=== PATIENT | female | born 1990 | race Hispanic/Latino ===

== ENCOUNTER 2023-04-02 09:36 | Inpatient (IN) | payer SELFPAY ==
[2023-04-02 09:52] VITALS: BMI 33.7
[2023-04-02] MEDS ORDERED: fentaNYL 50 mcg/mL 1 mL Vial SLOW IVP PRN (10:04)
[2023-04-02] MEDS ORDERED: Acetaminophen 500 MG TAB PO PRN (10:04)
[2023-04-02] MEDS ORDERED: Lidocaine 1% (PF) 30 ML VIAL SC PRN (10:04)
[2023-04-02] MEDS ORDERED: hydrALAZINE 20 MG/ML VIAL SLOW IVP PRN (10:04)
[2023-04-02] MEDS ORDERED: Ondansetron PF 4 MG/2 ML Vial IVP PRN ×2 (10:04→11:15)
[2023-04-02] MEDS ORDERED: Promethazine HCl 25 MG/ML VIAL IM PRN ×2 (10:04→11:15)
[2023-04-02] MEDS ORDERED: Lactated Ringer's 1,000 ML IV SCH (10:15)
[2023-04-02 10:33] LABS: Hematocrit 37.2 % (34.9-44.5); Hemoglobin 12.6 g/dL (12.0-15.5); Mean Corpuscular HGB CONC 33.9 g/dL (32.0-36.0); Mean Corpuscular Hemoglobin 27.9 pg (27.0-33.0); Mean Corpuscular Volume 82.5 fl (81.6-98.3); Platelet Count 323 10x3/uL (150-450); RBC Distribution Width 14.6 % (11.5-14.5); Red Blood Cell (RBC) Count 4.51 10x6/uL (3.90-5.03); White Blood Cell (WBC) Count 14.1 10x3/uL (3.5-10.5)
[2023-04-02 11:02] LABS: HIV (1/2) Antibody/Antigen Non-Reactive (NonReactive); HIV 1/2 INDEX 0.07 S/CO (<1.00)
[2023-04-02 11:04] LABS: Syphilis Antibody Nonreactive (Nonreactive); Syphilis Antibody Index 0.05 S/CO (<1.00 Non-Reactive)
[2023-04-02 11:05] LABS: HBSAg Index 0.24 S/CO (0-0.99); Hep B Surf Ag - L&D Non-Reactive S/CO (NonReactive)
[2023-04-02] MEDS: fentaNYL/Ropivacaine Epidural 100 ML ONE (11:08)
[2023-04-02] MEDS ORDERED: diphenhydrAMINE 50 MG/ML VIAL IVP PRN (11:15)
[2023-04-02] MEDS ORDERED: Moisturizing Cream (Eucerin) 113 GM JAR TOP PRN (11:15)
[2023-04-02] MEDS ORDERED: ePHEDrine Sulfate 50 MG/10 ML VIAL SLOW IVP PRN (11:15)
[2023-04-02] MEDS ORDERED: Naloxone HCl 0.4 mg/ml Vial IVP PRN ×2 (11:15)
[2023-04-02] MEDS ORDERED: Acetaminophen 325 MG TAB PO PRN (11:15)
[2023-04-02] MEDS ORDERED: Communication Order-Pharmacy FS SCH (11:15)
[2023-04-02] MEDS ORDERED: Lactated Ringer's 500 ML IV PRN (11:15)
[2023-04-02 11:33] LABS: Amphetamine Not Detected (NotDetected); Barbiturates Screen Not Detected (NotDetected); Benzodiazepine Screen Not Detected (NotDetected); Cocaine Metabolite Screen Not Detected (NotDetected); Methadone Not Detected (NotDetected); Methamphetamine Not Detected (NotDetected); Opiate Screen Not Detected (NotDetected); Oxycodone Screen Not Detected (NotDetected); Phencyclidine (PCP) Not Detected (NotDetected); THC/Cannabinoid Screen Not Detected (NotDetected); Tricyclic Screen Not Detected (NotDetected)
[2023-04-02] MEDS: fentaNYL 2 mcg/Ropivacaine 0.2% Epidural 100 ML CADD EPIDURAL SCH (20:24)
[2023-04-02 21:37] LABS: Analyzer IN Cardio CS NICU; RapidComm Collect By CBN
[2023-04-02 21:38] LABS: Analyzer IN Cardio CS NICU; RapidComm Collect By CBN; pH (Cord, venous) 7.312 (7.250-7.350)
[2023-04-02] MEDS: Oxytocin 30 units/NS 500 ML 500 ML IV SCH (22:11)
[2023-04-02] MEDS: Methylergonovine 0.2 MG/ML VIAL IM SCH (23:18)
[2023-04-02] MEDS: Tranexamic Acid 1,000 MG/10 ML VIAL IVP SCH (23:19)
[2023-04-03] MEDS ORDERED: Carboprost 250 MCG/ML AMP IM PRN (01:17)
[2023-04-03] MEDS ORDERED: Lanolin Ointment 7 GM TUBE TOP PRN (01:17)
[2023-04-03] MEDS ORDERED: diphenhydrAMINE 25 MG CAP PO PRN (01:17)
[2023-04-03] MEDS ORDERED: Milk Of Magnesia 30 ML UDCUP PO PRN (01:17)
[2023-04-03] MEDS ORDERED: Misoprostol 200 MCG TAB PR PRN (01:17)
[2023-04-03] MEDS ORDERED: Preparation H Ointment 28 GM TUBE PR PRN (01:17)
[2023-04-03] MEDS ORDERED: Oxytocin 30 units/NS 500 ML 500 ML IV SCH (01:17)
[2023-04-03] MEDS ORDERED: Diphenoxylate HCl/Atropine Tablet PO PRN (01:17)
[2023-04-03] MEDS ORDERED: Methylergonovine 0.2 MG/ML VIAL IM PRN (01:17)
[2023-04-03] MEDS ORDERED: Bisacodyl 10 MG SUPP PR PRN (01:17)
[2023-04-03] MEDS ORDERED: Tranexamic Acid 1,000 MG/10 ML VIAL IVP PRN (01:17)
[2023-04-03] MEDS ORDERED: hydrALAZINE 20 MG/ML VIAL SLOW IVP PRN (01:17)
[2023-04-03] MEDS: HYDROcodone/Acetaminophen 5/325 mg Tablet PO SCH (01:46)
[2023-04-03] MEDS: Benzocaine-Menthol 82.5 ML CAN TOP PRN (01:49)
[2023-04-03] MEDS ORDERED: HYDROcodone/Acetaminophen 5/325 mg Tablet PO PRN (02:04)
[2023-04-03] MEDS: Acetaminophen 500 MG TAB PO SCH (04:20)
[2023-04-03 05:23] LABS: #Monocytes 1.1 10x3/uL (0.0-1.1); #Neutrophils 18.6 10x3/uL (1.5-8.4); %Basophils 0.1 % (0.0-2.0); %Lymphocytes 7.2 % (18.0-47.0); %Monocytes 5.1 % (0.0-10.0); %Neutrophils 87.1 % (40.0-75.0); Hematocrit 29.2 % (34.9-44.5); Mean Corpuscular HGB CONC 34.2 g/dL (32.0-36.0); Mean Corpuscular Hemoglobin 28.1 pg (27.0-33.0); Mean Platelet Volume 9.9 fl (7.4-10.4); Platelet Count 270 10x3/uL (150-450); RBC Distribution Width 14.8 % (11.5-14.5); Red Blood Cell (RBC) Count 3.56 10x6/uL (3.90-5.03); White Blood Cell (WBC) Count 21.4 10x3/uL (3.5-10.5)
[2023-04-03] MEDS: Ibuprofen 800 MG TAB PO SCH (05:43)
[2023-04-03] MEDS: Boostrix 0.5 ML (Tdap) VIAL (>/=7 yrs of age) IM ONE (07:13)
[2023-04-03] MEDS: Ferrous Sulfate 325 MG TAB PO SCH (07:13)
[2023-04-03] MEDS: Docusate 100 MG CAP PO SCH (09:09)
[2023-04-03] MEDS: Polyethylene Glycol 3350 17 GM Packet PO SCH (09:09)
[2023-04-03] MEDS: Prenatal Vitamin 1 TAB PO SCH (09:10)
[2023-04-04 07:26] VITALS: BP 90/50; TEMP 97.8
== END 2023-04-04 17:35 | disposition home or self-care (01) | DRG 768 ==
LOC: CSHLD/OP 09:36 → CSHLD 10:05 → CSHPP 04-03 01:30
PROVIDERS: ADMIT Obstetrics & Gynecology; ATTEND Obstetrics & Gynecology
PROC: 10D07Z6 Extraction of Products of Conception, Vacuum, Via Natural or Artificial Opening (ICD-10-PCS; principal; 2023-04-02)
PROC: 0DQR0ZZ Repair Anal Sphincter, Open Approach (ICD-10-PCS; 2023-04-02)
PROC: 0KQM0ZZ Repair Perineum Muscle, Open Approach (ICD-10-PCS; 2023-04-02)
DX: O77.0 Labor and delivery complicated by meconium in amniotic fluid (principal); Z37.0 Single live birth; O70.22 Third degree perineal laceration during delivery, IIIb; O72.1 Other immediate postpartum hemorrhage; Z3A.39 39 weeks gestation of pregnancy
CPT/HCPCS: 36415; 51701; 51702; 76805; 80306; 82805; 85025; 85027; 86762; 86780; 86850; 86900; 86901; 87340; 87389; 99285; J2210; J2590